=== PATIENT | female | born 1945 | race Hispanic/Latino ===

== ENCOUNTER → 2021-05-04 | Outpatient (CLI) | payer MEDICARE | END | disposition home or self-care (01) | LOC: OIH 09:26 | PROVIDERS: ATTEND Family Medicine | DX: S43.034A Inferior dislocation of right humerus, initial encounter (principal); X58.XXXA Exposure to other specified factors, initial encounter; Y93.89 Activity, other specified; Y92.89 Other specified places as the place of occurrence of the external cause; Y99.8 Other external cause status | CPT/HCPCS: 73030 ==

== ENCOUNTER 2021-08-02 08:49 | Inpatient (IN) | payer MEDICARE ==
[~2021-08-02] VITALS: Ht 160 cm; Wt 87.9 kg
[2021-08-02 09:59] LABS: BASOPHILS % (AUTO) 1.1 % (0.0-5.0); HEMATOCRIT 41.6 % (36-48); LYMPHOCYTES % (AUTO) 26.1 % (21.0-51.0); MEAN CORPUSCULAR HEMOGLOBIN 29.3 pg (27.0-33.0); MEAN CORPUSCULAR HGB CONC 32.2 g/dL (32.0-36.0); MONOCYTES % (AUTO) 6.7 % (3.0-13.0); NEUTROPHILS % (AUTO) 61.7 % (40.0-77.0); PLATELET COUNT (AUTO) 245 K/uL (130-400); RED BLOOD CELL COUNT(AUTO) 4.57 MIL/uL (4.00-5.50); RED CELL DISTRIBUTION WIDTH 13.4 % (11.0-15.5); WHITE BLOOD COUNT (AUTO) 7.2 K/uL (4.8-10.8)
[2021-08-02 10:08] LABS: ABG BASE EXCESS -0.7 mmol/L (-2.0-3.0); ABG HCO3 22.8 mmol/L (21.0-28.0); ABG OXYGEN SATURATION 96.6 % (95.0-99.0); ABG PCO2 34 mmHg (32-45)
[2021-08-02 10:09] LABS: HEMOGLOBIN A1C 5.8 % (4.0-6.0)
[2021-08-02 10:16] LABS: INR 1.19 (0.85-1.15); PROTHROMBIN TIME 12.8 SEC (9.6-11.6)
[2021-08-02 10:17] LABS: PARTIAL THROMBOPLASTIN TIME 29.1 SEC (26.3-35.5)
[2021-08-02 10:29] LABS: ALBUMIN 3.7 g/dL (3.5-5.0); BILIRUBIN,TOTAL 0.6 mg/dL (0.2-1.0); CREATININE 1.1 mg/dL (0.5-1.5); TOTAL PROTEIN, SERUM 7.7 g/dL (6.0-8.3)
[2021-08-02 10:56] VITALS: BP 121/74
[2021-08-02] MEDS ORDERED: ATEN25TA PO (14:50)
[2021-08-02] MEDS ORDERED: DYAZIDE GT (14:50)
[2021-08-02] MEDS ORDERED: APIX5TAB PO (14:50)
[2021-08-07] VITALS (36 sets, daily range): BP systolic 94–184; BP diastolic 7–101
[2021-08-07] MEDS ORDERED: NOREPINEPHRINE BITARTRATE 8 MG in DEXTROSE 5%-WATER 250 ML IV PRN (07:00)
[2021-08-07] MEDS ORDERED: EPINEPHRINE PF 1MG AMP 10 MG in 0.9% NACL 250ML 240 ML IV PRN (07:00)
[2021-08-07] MEDS ORDERED: AMINOCAPROIC ACID 5,000MG VIAL 15,000 MG in 0.9% NACL 500ML IV.SOLN 420 ML IV PRN (07:00)
[2021-08-07] MEDS ORDERED: LACTATED RINGERS 1000ML 1,000 ML IV ONE (08:47)
[2021-08-07] MEDS ORDERED: PAPAVERINE HCL 30 MG/ML 2ML VIAL ONE (08:56)
[2021-08-07] MEDS ORDERED: CEFAZOLIN SODIUM 1 GM VIAL ONE ×2 (08:56→14:34)
[2021-08-07] MEDS: CEFAZOLIN SODIUM 1 GM VIAL ONE ×2 (09:44→11:00)
[2021-08-07] MEDS ORDERED: DELNIDO FORMULA 1 BAG IV ONE (10:16)
[2021-08-07] MEDS ORDERED: ESMOLOL HCL 10 MG/ML 10 ML VIAL ONE (10:32)
[2021-08-07] MEDS ORDERED: LIDOCAINE PF 100MG/5ML (2%) SYRINGE 5ML ONE (10:32)
[2021-08-07] MEDS ORDERED: SODIUM BICARB 50MEQ 50ML VIAL 150 ML ONE (10:32)
[2021-08-07] MEDS ORDERED: EPINEPHRINE PF 1MG AMP ONE (10:32)
[2021-08-07] MEDS ORDERED: HEPARIN 10,000 UNIT/10ML (1,000 UNIT/ML) VIAL ONE (10:32)
[2021-08-07] MEDS ORDERED: PROTAMINE SULFATE 10 MG/ML 25ML VIAL IV ONE (10:32)
[2021-08-07] MEDS ORDERED: NOREPINEPHRINE BITARTRATE 1 MG/1 ML ML IV ONE (10:33)
[2021-08-07] MEDS ORDERED: AMINOCAPROIC ACID 5,000MG VIAL ONE (10:33)
[2021-08-07] MEDS ORDERED: PROPOFOL 10 MG/ML 20ML VIAL IV ONE (10:33)
[2021-08-07] MEDS ORDERED: FENTANYL CITRATE PF 50 MCG/1 ML 20ML VIAL IJ ONE (10:33)
[2021-08-07] MEDS ORDERED: ROCURONIUM 10MG/1ML SYR 10 MG/ML ML ONE (10:33)
[2021-08-07] MEDS ORDERED: MIDAZOLAM HCL 1 MG/ML 2ML VIAL ONE (10:33)
[2021-08-07] MEDS ORDERED: KETAMINE HCL 100 MG/ML 5ML VIAL IJ ONE (10:36)
[2021-08-07] MEDS ORDERED: CEFAZOLIN SODIUM 1 GM VIAL IVP ONE (11:00)
[2021-08-07 11:43] LABS: ABG BASE EXCESS -1.5 mmol/L (-2.0-3.0); ABG HCO3 23.4 mmol/L (21.0-28.0); ABG OXYGEN SATURATION 99.9 % (95.0-99.0); ABG PCO2 40 mmHg (32-45)
[2021-08-07 13:19] LABS: ABG BASE EXCESS -5.3 mmol/L (-2.0-3.0); ABG HCO3 17.9 mmol/L (21.0-28.0); ABG OXYGEN SATURATION 99.3 % (95.0-99.0); ABG PCO2 27 mmHg (32-45)
[2021-08-07 13:44] LABS: ABG BASE EXCESS 1.1 mmol/L (-2.0-3.0); ABG HCO3 24.1 mmol/L (21.0-28.0); ABG OXYGEN SATURATION 98.7 % (95.0-99.0); ABG PCO2 33 mmHg (32-45)
[2021-08-07] MEDS ORDERED: MIDAZOLAM HCL 1 MG/ML 5ML VIAL ONE (13:50)
[2021-08-07] MEDS ORDERED: AMIODARONE 150MG VIAL ONE (13:52)
[2021-08-07] MEDS ORDERED: NITROGLYCERIN 50MG/D5W 250ML 1 BOT ONE (14:13)
[2021-08-07] MEDS ORDERED: HEPARIN 10,000 UNIT/10ML (1,000 UNIT/ML) VIAL IV ONE (14:34)
[2021-08-07] MEDS ORDERED: PHENYLEPHRINE HCL 10 MG/ML 1ML VIAL IV ONE (14:34)
[2021-08-07] MEDS ORDERED: MAGNESIUM SULFATE 1 GM/2 ML VIAL IM ONE (14:34)
[2021-08-07] MEDS ORDERED: ALBUMIN (HUMAN) 25% 50 ML IV ONE (14:34)
[2021-08-07] MEDS ORDERED: AMINOCAPROIC ACID 5,000MG VIAL IV ONE (14:34)
[2021-08-07] MEDS ORDERED: LIDOCAINE PF 100MG/5ML (2%) SYRINGE 5ML IVP ONE (14:34)
[2021-08-07] MEDS ORDERED: MANNITOL 25% 50ML VIAL IV ONE (14:34)
[2021-08-07] MEDS ORDERED: CACL 1GM SYG IVP ONE (14:34)
[2021-08-07] MEDS ORDERED: SODIUM BICARB 8.4% 50ML SYRINGE IVP ONE (14:34)
[2021-08-07 14:48] LABS: ABG BASE EXCESS -3.4 mmol/L (-2.0-3.0); ABG HCO3 20.6 mmol/L (21.0-28.0); ABG OXYGEN SATURATION 98.7 % (95.0-99.0); ABG PCO2 33 mmHg (32-45)
[2021-08-07] MEDS: POTASSIUM CHLORIDE 20MEQ/100ML 100 ML IV PRN ×11 (15:20→23:18)
[2021-08-07 15:25] LABS: ABG BASE EXCESS -2.1 mmol/L (-2.0-3.0); ABG HCO3 22.4 mmol/L (21.0-28.0); ABG OXYGEN SATURATION 97.8 % (95.0-99.0); ABG PCO2 37 mmHg (32-45)
[2021-08-07] MEDS ORDERED: INSULIN REGULAR, HUMAN 3ML 100 UNIT in 0.9%NACL 100ML 99 ML IV SCH ×2 (15:30)
[2021-08-07] MEDS ORDERED: GLUCAGON 1MG KIT 1 MG ML IM PRN (15:30)
[2021-08-07] MEDS ORDERED: EPINEPHRINE PF 1MG AMP 10 MG in DEXTROSE 5%-WATER 250 ML IV PRN (15:30)
[2021-08-07] MEDS ORDERED: TRAMADOL HCL 50 MG TABLET PO PRN (15:30)
[2021-08-07] MEDS ORDERED: MORPHINE 4 MG SYG IV PRN (15:30)
[2021-08-07] MEDS ORDERED: AMINOCAPROIC ACID 5,000MG VIAL 15,000 MG in 0.9% NACL 250ML 250 ML IV SCH (15:30)
[2021-08-07] MEDS ORDERED: ACETAMINOPHEN 650 MG SUPPOSITORY RC PRN (15:30)
[2021-08-07] MEDS ORDERED: ALBUMIN (HUMAN) 5% 250 ML IV PRN (15:30)
[2021-08-07] MEDS ORDERED: PROPOFOL 1000 MG/100 ML 100 ML IV PRN (15:30)
[2021-08-07] MEDS ORDERED: POTASSIUM PHOS 15 mMOL+NS250ML 250 ML IV PRN (15:30)
[2021-08-07] MEDS ORDERED: DEXTROSE 50%-WATER 50 ML DISP.SYRIN IV PRN (15:30)
[2021-08-07] MEDS ORDERED: NITROGLYCERIN 50MG/D5W 250ML 250 BOT IV SCH (15:30)
[2021-08-07] MEDS ORDERED: MORPHINE 2 MG SYG IV PRN (15:30)
[2021-08-07] MEDS ORDERED: 0.9% NACL 500ML IV.SOLN 500 ML IV SCH (15:30)
[2021-08-07] MEDS ORDERED: 0.9%NACL 10ML VIAL IVP PRN (15:30)
[2021-08-07] MEDS ORDERED: MAGNESIUM 2GM PREMIX 50ML 50 ML IV PRN (15:30)
[2021-08-07] MEDS ORDERED: NOREPINEPHRIN 4MG/NS 250ML 250 ML IV PRN (15:30)
[2021-08-07] MEDS: 0.9%NACL 1000ML 1,000 ML IV SCH ×2 (15:30→19:57)
[2021-08-07 15:41] LABS: HEMATOCRIT 30.4 % (36-48); MEAN CORPUSCULAR HEMOGLOBIN 29.5 pg (27.0-33.0); MEAN CORPUSCULAR HGB CONC 32.2 g/dL (32.0-36.0); MEAN CORPUSCULAR VOLUME 91.6 fL (79-99); RED BLOOD CELL COUNT(AUTO) 3.32 MIL/uL (4.00-5.50); RED CELL DISTRIBUTION WIDTH 13.5 % (11.0-15.5); WHITE BLOOD COUNT (AUTO) 25.5 K/uL (4.8-10.8)
[2021-08-07 15:53] LABS: CREATININE 1.1 mg/dL (0.5-1.5); MAGNESIUM 2.9 mg/dL (1.80-2.40); PHOSPHORUS 3.7 mg/dL (2.5-4.9)
[2021-08-07 15:54] LABS: INR 1.37 (0.85-1.15); PROTHROMBIN TIME 14.5 SEC (9.6-11.6)
[2021-08-07 15:56] LABS: PARTIAL THROMBOPLASTIN TIME 26.4 SEC (26.3-35.5)
[2021-08-07] MEDS: TRAMADOL HCL 50 MG TABLET PO PRN ×2 (16:00→23:00)
[2021-08-07 16:50] LABS: ABG BASE EXCESS -3.9 mmol/L (-2.0-3.0); ABG HCO3 20.1 mmol/L (21.0-28.0); ABG OXYGEN SATURATION 97.9 % (95.0-99.0); ABG PCO2 33 mmHg (32-45)
[2021-08-07] MEDS: SODIUM BICARB 50MEQ 50ML VIAL IV PRN ×6 (17:00→23:35)
[2021-08-07 18:14] LABS: ABG BASE EXCESS -1.3 mmol/L (-2.0-3.0); ABG HCO3 24.5 mmol/L (21.0-28.0); ABG OXYGEN SATURATION 97.1 % (95.0-99.0); ABG PCO2 45 mmHg (32-45)
[2021-08-07 19:38] LABS: ABG BASE EXCESS -4.4 mmol/L (-2.0-3.0); ABG HCO3 21.6 mmol/L (21.0-28.0); ABG OXYGEN SATURATION 97.7 % (95.0-99.0); ABG PCO2 43 mmHg (32-45)
[2021-08-07] MEDS: ACETAMINOPHEN 325 MG TAB PO PRN (20:07)
[2021-08-07] MEDS: FAMOTIDINE 20MG VIAL IV SCH (20:08)
[2021-08-07] MEDS: ATORVASTATIN 40 MG TABLET PO SCH (20:08)
[2021-08-07] MEDS: CEFAZOLIN SODIUM 1 GM VIAL IV SCH (20:24)
[2021-08-07 20:33] LABS: ABG BASE EXCESS 4.6 mmol/L (-2.0-3.0); ABG HCO3 29.9 mmol/L (21.0-28.0); ABG OXYGEN SATURATION 96.9 % (95.0-99.0); ABG PCO2 48 mmHg (32-45)
[2021-08-07] MEDS: CALCIUM GLUC 1GM 1 GM in 0.9%NACL 50ML 50 ML IV PRN ×2 (20:55→21:39)
[2021-08-07] MEDS ORDERED: PHARMACY COMMUNICATION MISC SCH (21:00)
[2021-08-07 21:37] LABS: ABG BASE EXCESS 1.2 mmol/L (-2.0-3.0); ABG HCO3 26.3 mmol/L (21.0-28.0); ABG OXYGEN SATURATION 97.6 % (95.0-99.0); ABG PCO2 44 mmHg (32-45)
[2021-08-07 22:58] LABS: ABG BASE EXCESS -0.6 mmol/L (-2.0-3.0); ABG HCO3 25.5 mmol/L (21.0-28.0); ABG OXYGEN SATURATION 97.5 % (95.0-99.0); ABG PCO2 48 mmHg (32-45)
[2021-08-07 23:03] LABS: ABG BASE EXCESS -1.1 mmol/L (-2.0-3.0); ABG OXYGEN SATURATION 97.4 % (95.0-99.0); ABG PCO2 48 mmHg (32-45)
[2021-08-07 23:15] LABS: ABG BASE EXCESS -1.6 mmol/L (-2.0-3.0); ABG HCO3 24.2 mmol/L (21.0-28.0); ABG PCO2 45 mmHg (32-45)
[2021-08-08] VITALS (43 sets, daily range): BP systolic 85–174; BP diastolic 34–106
[2021-08-08 00:49] LABS: ABG BASE EXCESS 3.3 mmol/L (-2.0-3.0); ABG HCO3 28.4 mmol/L (21.0-28.0); ABG OXYGEN SATURATION 96.9 % (95.0-99.0); ABG PCO2 45 mmHg (32-45)
[2021-08-08] MEDS: ACETAMINOPHEN 325 MG TAB PO PRN ×2 (00:59→19:46)
[2021-08-08 03:35] LABS: HEMATOCRIT 30.8 % (36-48); MEAN CORPUSCULAR HEMOGLOBIN 29.6 pg (27.0-33.0); MEAN CORPUSCULAR HGB CONC 32.1 g/dL (32.0-36.0); MEAN CORPUSCULAR VOLUME 91.9 fL (79-99); RED BLOOD CELL COUNT(AUTO) 3.35 MIL/uL (4.00-5.50); RED CELL DISTRIBUTION WIDTH 13.9 % (11.0-15.5); WHITE BLOOD COUNT (AUTO) 17.3 K/uL (4.8-10.8)
[2021-08-08 03:44] LABS: INR 1.27 (0.85-1.15); PROTHROMBIN TIME 13.5 SEC (9.6-11.6)
[2021-08-08 03:45] LABS: PARTIAL THROMBOPLASTIN TIME 28.1 SEC (26.3-35.5)
[2021-08-08 03:46] LABS: CREATININE 1.3 mg/dL (0.5-1.5); MAGNESIUM 2.1 mg/dL (1.80-2.40); PHOSPHORUS 1.6 mg/dL (2.5-4.9)
[2021-08-08] MEDS: CEFAZOLIN SODIUM 1 GM VIAL IV SCH ×2 (03:53→13:51)
[2021-08-08] MEDS: POTASSIUM CHLORIDE 20MEQ/100ML 100 ML IV PRN (03:58)
[2021-08-08] MEDS ORDERED: PHARMACY COMMUNICATION MISC SCH (04:00)
[2021-08-08 04:15] LABS: ABG BASE EXCESS 7.5 mmol/L (-2.0-3.0); ABG HCO3 33.6 mmol/L (21.0-28.0); ABG OXYGEN SATURATION 95.7 % (95.0-99.0); ABG PCO2 55 mmHg (32-45)
[2021-08-08 06:19] LABS: ABG BASE EXCESS 8.5 mmol/L (-2.0-3.0); ABG HCO3 34.2 mmol/L (21.0-28.0); ABG OXYGEN SATURATION 96.1 % (95.0-99.0); ABG PCO2 53 mmHg (32-45)
[2021-08-08] MEDS: FAMOTIDINE 20MG VIAL IV SCH (09:00)
[2021-08-08] MEDS ORDERED: FAMOTIDINE 20MG TAB ONE (09:09)
[2021-08-08] MEDS: CLOPIDOGREL 75MG TAB PO SCH (09:15)
[2021-08-08] MEDS: ONDANSETRON 4MG INJ IV PRN (13:53)
[2021-08-08 14:24] LABS: ABG BASE EXCESS 6.8 mmol/L (-2.0-3.0); ABG HCO3 31.5 mmol/L (21.0-28.0); ABG OXYGEN SATURATION 98.1 % (95.0-99.0); ABG PCO2 46 mmHg (32-45)
[2021-08-08 14:39] LABS: CREATININE 1.1 mg/dL (0.5-1.5); MAGNESIUM 1.8 mg/dL (1.80-2.40); POTASSIUM 5.9 mmol/L (3.5-5.1)
[2021-08-08] MEDS: ATORVASTATIN 40 MG TABLET PO SCH (19:46)
[2021-08-08] MEDS: TRAMADOL HCL 50 MG TABLET PO PRN (20:59)
[2021-08-09] VITALS (22 sets, daily range): BP systolic 91–172; BP diastolic 37–113
[2021-08-09] MEDS: ACETAMINOPHEN 325 MG TAB PO PRN (00:07)
[2021-08-09 04:24] LABS: HEMATOCRIT 29.4 % (36-48); MEAN CORPUSCULAR HEMOGLOBIN 29.6 pg (27.0-33.0); MEAN CORPUSCULAR HGB CONC 30.6 g/dL (32.0-36.0); MEAN CORPUSCULAR VOLUME 96.7 fL (79-99); NUCLEATED RED BLOOD CELLS 0.1 % (0.0-0.19); PLATELET COUNT (AUTO) 126 K/uL (130-400); RED BLOOD CELL COUNT(AUTO) 3.04 MIL/uL (4.00-5.50); RED CELL DISTRIBUTION WIDTH 14.5 % (11.0-15.5); WHITE BLOOD COUNT (AUTO) 20.1 K/uL (4.8-10.8)
[2021-08-09 05:19] LABS: CREATININE 1.7 mg/dL (0.5-1.5)
[2021-08-09 05:23] LABS: POTASSIUM 6.7 mmol/L (3.5-5.1)
[2021-08-09] MEDS ORDERED: DEXTROSE 50%-WATER 50 ML DISP.SYRIN IV ONE (06:00)
[2021-08-09] MEDS ORDERED: INSULIN HUMULIN R 100 UNIT/ML 3ML IV ONE (06:00)
[2021-08-09] MEDS: 0.9%NACL 1000ML 1,000 ML IV SCH (06:00)
[2021-08-09] MEDS ORDERED: KAYEXALATE 15GM/60ML PO ONE (06:00)
[2021-08-09] MEDS: ONDANSETRON 4MG INJ IV PRN (06:35)
[2021-08-09] MEDS ORDERED: FUROSEMIDE 20 MG TABLET PO SCH (09:00)
[2021-08-09] MEDS ORDERED: FUROSEMIDE 20MG VIAL IV SCH (09:00)
[2021-08-09] MEDS ORDERED: METOPROLOL TARTRATE 25 MG TAB ONE (10:36)
[2021-08-09] MEDS: CLOPIDOGREL 75MG TAB PO SCH (10:43)
[2021-08-09] MEDS: FAMOTIDINE 20MG VIAL IV SCH (10:43)
[2021-08-09] MEDS ORDERED: METOPROLOL TARTRATE 25 MG TAB PO SCH (11:00)
[2021-08-09 13:58] LABS: ABG BASE EXCESS 1.7 mmol/L (-2.0-3.0); ABG HCO3 25.9 mmol/L (21.0-28.0); ABG OXYGEN SATURATION 90.6 % (95.0-99.0); ABG PCO2 39 mmHg (32-45)
[2021-08-09 16:27] LABS: MEAN CORPUSCULAR HEMOGLOBIN 29.5 pg (27.0-33.0); MEAN CORPUSCULAR VOLUME 95.1 fL (79-99); NUCLEATED RED BLOOD CELLS 0.2 % (0.0-0.19); PLATELET COUNT (AUTO) 124 K/uL (130-400); RED BLOOD CELL COUNT(AUTO) 3.05 MIL/uL (4.00-5.50); RED CELL DISTRIBUTION WIDTH 14.5 % (11.0-15.5); WHITE BLOOD COUNT (AUTO) 18.9 K/uL (4.8-10.8)
[2021-08-09 16:45] LABS: CREATININE 2.2 mg/dL (0.5-1.5); POTASSIUM 4.6 mmol/L (3.5-5.1)
[2021-08-09 16:50] LABS: BAND NEUTROPHILS % (MANUAL) 3 % (0-2); LYMPHOCYTES % (MANUAL) 3 % (22-44); MAN.DIFF COMMENT-IMPRESSION MANUAL DIFFERENTIAL; MONOCYTES % (MANUAL) 2 % (2-9); REACTIVE LYMPHOCYTES 4 % (0-0); SEGMENTED NEUTROPHILS % 88 % (40-70)
[2021-08-09 17:15] LABS: ABG BASE EXCESS 2.4 mmol/L (-2.0-3.0); ABG HCO3 27.1 mmol/L (21.0-28.0); ABG OXYGEN SATURATION 98.3 % (95.0-99.0); ABG PCO2 43 mmHg (32-45)
[2021-08-09 17:17] LABS: BILIRUBIN,URINE Negative (NEGATIVE); COLOR,URINE Yellow (YELLOW); GLUCOSE, URINE (UA) Negative (NEGATIVE); KETONES,URINE Trace mg/dL (NEGATIVE); LEUKOCYTE ESTERASE ,URINE Moderate (NEGATIVE); NITRATE,URINE Negative (NEGATIVE); OCCULT BLOOD,URINE Large (NEGATIVE); PROTEIN,URINE POS 1+ mg/dL (NEGATIVE)
[2021-08-09 17:23] LABS: APPEARANCE,URINE CLOUDY (CLEAR)
[2021-08-09 17:29] LABS: BACTERIA,URINE Few /HPF (None Seen)
[2021-08-09 17:30] LABS: MUCUS,URINE Rare LPF (None Seen); SQUAMOUS EPITHELIAL CELL,UR Few /HPF (0-2)
[2021-08-09] MEDS ORDERED: DEXMEDETOMIDINE 400MCG/NS100ML IV ONE (18:45)
[2021-08-09] MEDS ORDERED: DEXMEDETOMIDINE 400MCG/NS100ML IV SCH (19:00)
[2021-08-09] MEDS: ATORVASTATIN 40 MG TABLET PO SCH (19:50)
[2021-08-10] VITALS (16 sets, daily range): BP systolic 98–136; BP diastolic 42–77
[2021-08-10] MEDS: 0.9%NACL 1000ML 1,000 ML IV SCH ×2 (02:00→07:22)
[2021-08-10 06:19] LABS: HEMATOCRIT 27.4 % (36-48); MEAN CORPUSCULAR HEMOGLOBIN 29.1 pg (27.0-33.0); MEAN CORPUSCULAR HGB CONC 30.7 g/dL (32.0-36.0); MEAN CORPUSCULAR VOLUME 94.8 fL (79-99); PLATELET COUNT (AUTO) 107 K/uL (130-400); RED BLOOD CELL COUNT(AUTO) 2.89 MIL/uL (4.00-5.50); RED CELL DISTRIBUTION WIDTH 14.1 % (11.0-15.5); WHITE BLOOD COUNT (AUTO) 13.7 K/uL (4.8-10.8)
[2021-08-10 06:28] LABS: CREATININE 1.8 mg/dL (0.5-1.5)
[2021-08-10 07:20] LABS: EOSINOPHILS % (MANUAL) 1 % (1-6); LYMPHOCYTES % (MANUAL) 14 % (22-44); MAN.DIFF COMMENT-IMPRESSION MANUAL DIFFERENTIAL; MONOCYTES % (MANUAL) 5 % (2-9); PLATELET MORPHOLOGY COMMENT SLIGHTLY DECREASED; SEGMENTED NEUTROPHILS % 80 % (40-70)
[2021-08-10] MEDS: CLOPIDOGREL 75MG TAB PO SCH (09:23)
[2021-08-10] MEDS: METOPROLOL TARTRATE 25 MG TAB PO SCH ×2 (09:23→20:10)
[2021-08-10] MEDS: ENOXAPARIN SODIUM 30 MG/0.3 ML SQ SCH (09:24)
[2021-08-10] MEDS: FAMOTIDINE 20MG VIAL IV SCH ×2 (09:24→09:26)
[2021-08-10] MEDS: FAMOTIDINE 20MG TAB PO SCH (09:43)
[2021-08-10] MEDS: ACETAMINOPHEN 325 MG TAB PO PRN (20:11)
[2021-08-10] MEDS: ATORVASTATIN 40 MG TABLET PO SCH (20:12)
[2021-08-11 03:32] VITALS: BP 114/52
[2021-08-11] MEDS: 0.9%NACL 1000ML 1,000 ML IV SCH (04:02)
[2021-08-11 04:22] LABS: HEMATOCRIT 30.2 % (36-48); MEAN CORPUSCULAR HEMOGLOBIN 29.6 pg (27.0-33.0); MEAN CORPUSCULAR HGB CONC 30.5 g/dL (32.0-36.0); MEAN CORPUSCULAR VOLUME 97.1 fL (79-99); NUCLEATED RED BLOOD CELLS 0.3 % (0.0-0.19); PLATELET COUNT (AUTO) 151 K/uL (130-400); RED BLOOD CELL COUNT(AUTO) 3.11 MIL/uL (4.00-5.50); RED CELL DISTRIBUTION WIDTH 14.2 % (11.0-15.5); WHITE BLOOD COUNT (AUTO) 12.8 K/uL (4.8-10.8)
[2021-08-11 04:45] LABS: CREATININE 1.8 mg/dL (0.5-1.5); PHOSPHORUS 4.1 mg/dL (2.5-4.9); POTASSIUM 4.1 mmol/L (3.5-5.1)
[2021-08-11 05:13] LABS: BASOPHILS % (MANUAL) 2 % (0-2); LYMPHOCYTES % (MANUAL) 23 % (22-44); MONOCYTES % (MANUAL) 3 % (2-9); SEGMENTED NEUTROPHILS % 72 % (40-70)
[2021-08-11 05:14] LABS: MAN.DIFF COMMENT-IMPRESSION MANUAL DIFFERENTIAL; PLATELET MORPHOLOGY COMMENT SLIGHTLY DECREASED
[2021-08-11 08:30] VITALS: BP 119/82
[2021-08-11] MEDS: CLOPIDOGREL 75MG TAB PO SCH (09:25)
[2021-08-11] MEDS: METOPROLOL TARTRATE 25 MG TAB PO SCH ×2 (09:25→19:55)
[2021-08-11] MEDS: FAMOTIDINE 20MG TAB PO SCH (09:25)
[2021-08-11] MEDS: ENOXAPARIN SODIUM 30 MG/0.3 ML SQ SCH (09:28)
[2021-08-11 12:30] VITALS: BP 141/77
[2021-08-11 16:30] VITALS: BP 163/71
[2021-08-11 19:52] VITALS: BP 160/80
[2021-08-11] MEDS: ATORVASTATIN 40 MG TABLET PO SCH (19:55)
[2021-08-11 23:31] VITALS: BP 134/64
[2021-08-12 03:55] LABS: BASOPHILS % (AUTO) 0.7 % (0.0-5.0); EOSINOPHILS % (AUTO) 2.2 % (0.0-8.0); HEMATOCRIT 29.3 % (36-48); LYMPHOCYTES % (AUTO) 16.7 % (21.0-51.0); MEAN CORPUSCULAR HEMOGLOBIN 28.9 pg (27.0-33.0); MEAN CORPUSCULAR HGB CONC 31.1 g/dL (32.0-36.0); MONOCYTES % (AUTO) 11.5 % (3.0-13.0); NEUTROPHILS % (AUTO) 67.1 % (40.0-77.0); NUCLEATED RED BLOOD CELLS 0.4 % (0.0-0.19); PLATELET COUNT (AUTO) 193 K/uL (130-400); RED BLOOD CELL COUNT(AUTO) 3.15 MIL/uL (4.00-5.50); RED CELL DISTRIBUTION WIDTH 13.8 % (11.0-15.5); WHITE BLOOD COUNT (AUTO) 12.1 K/uL (4.8-10.8)
[2021-08-12 04:00] VITALS: BP 129/63
[2021-08-12 04:12] LABS: CREATININE 1.4 mg/dL (0.5-1.5); POTASSIUM 3.9 mmol/L (3.5-5.1)
[2021-08-12 08:41] VITALS: BP 137/86
[2021-08-12] MEDS: FAMOTIDINE 20MG TAB PO SCH (10:21)
[2021-08-12] MEDS: METOPROLOL TARTRATE 25 MG TAB PO SCH ×2 (10:21→19:25)
[2021-08-12] MEDS: CLOPIDOGREL 75MG TAB PO SCH (10:21)
[2021-08-12] MEDS: ENOXAPARIN SODIUM 30 MG/0.3 ML SQ SCH (10:22)
[2021-08-12 12:30] VITALS: BP 132/65
[2021-08-12] MEDS: 0.9%NACL 1000ML 1,000 ML IV SCH (13:43)
[2021-08-12 16:30] VITALS: BP 158/94
[2021-08-12 19:00] VITALS: BP 144/74
[2021-08-12] MEDS: ATORVASTATIN 40 MG TABLET PO SCH (19:25)
[2021-08-12] MEDS: ACETAMINOPHEN 325 MG TAB PO PRN (19:26)
[2021-08-13] VITALS: BP 167/84
[2021-08-13] MEDS: ONDANSETRON 4MG INJ IV PRN (01:37)
[2021-08-13 03:35] VITALS: BP 159/68
[2021-08-13] MEDS: 0.9%NACL 1000ML 1,000 ML IV SCH (07:28)
[2021-08-13 08:15] VITALS: BP 156/74
[2021-08-13] MEDS: ENOXAPARIN SODIUM 30 MG/0.3 ML SQ SCH (08:24)
[2021-08-13] MEDS: METOPROLOL TARTRATE 25 MG TAB PO SCH (08:25)
[2021-08-13] MEDS: CLOPIDOGREL 75MG TAB PO SCH (08:25)
[2021-08-13] MEDS: FAMOTIDINE 20MG TAB PO SCH (08:25)
[2021-08-13] MEDS ORDERED: FURO20TA6 PO (08:54)
[2021-08-13] MEDS ORDERED: GUAI600T50 PO (08:54)
[2021-08-13] MEDS ORDERED: METO25TA6 PO (08:56)
[2021-08-13] MEDS ORDERED: CLOP75TA14 PO (08:57)
[2021-08-13] MEDS ORDERED: GUAIFENESIN 600 MG TABLET.ER PO SCH (09:00)
[2021-08-13] MEDS ORDERED: FUROSEMIDE 20 MG TABLET PO SCH (09:00)
== END 2021-08-13 09:23 | disposition home or self-care (01) | DRG 219 ==
LOC: EDSTATUS 10:00 → DAHIP 08-07 08:26 → 2CV 08-07 14:12 → 2CH 08-08 10:17 → 2DH 08-10 13:59
PROVIDERS: ADMIT Thoracic Surgery (Cardiothoracic Vascular Surgery); ATTEND Thoracic Surgery (Cardiothoracic Vascular Surgery)
PROC: 02L70CK Occlusion of Left Atrial Appendage with Extraluminal Device, Open Approach (ICD-10-PCS; 2021-08-07)
PROC: 5A1221Z Performance of Cardiac Output, Continuous (ICD-10-PCS; 2021-08-07)
PROC: B24BZZ4 Ultrasonography of Heart with Aorta, Transesophageal (ICD-10-PCS; 2021-08-07)
PROC: 02RF08Z Replacement of Aortic Valve with Zooplastic Tissue, Open Approach (ICD-10-PCS; principal; 2021-08-07 10:31)
PROC: 02100Z9 Bypass Coronary Artery, One Artery from Left Internal Mammary, Open Approach (ICD-10-PCS; 2021-08-07 10:31)
PROC: 021009W Bypass Coronary Artery, One Artery from Aorta with Autologous Venous Tissue, Open Approach (ICD-10-PCS; 2021-08-07 10:31)
PROC: 06BQ4ZZ Excision of Left Saphenous Vein, Percutaneous Endoscopic Approach (ICD-10-PCS; 2021-08-07 10:31)
DX: I35.0 Nonrheumatic aortic (valve) stenosis (principal); J95.1 Acute pulmonary insufficiency following thoracic surgery; N17.9 Acute kidney failure, unspecified; I44.2 Atrioventricular block, complete; I25.10 Atherosclerotic heart disease of native coronary artery without angina pectoris; E87.5 Hyperkalemia; E78.00 Pure hypercholesterolemia, unspecified; Z20.822 Contact with and (suspected) exposure to COVID-19; I10 Essential (primary) hypertension; E78.5 Hyperlipidemia, unspecified; D64.9 Anemia, unspecified; R73.9 Hyperglycemia, unspecified; I48.0 Paroxysmal atrial fibrillation; Z88.6 Allergy status to analgesic agent; Z88.8 Allergy status to other drugs, medicaments and biological substances; Z91.018 Allergy to other foods; Z90.49 Acquired absence of other specified parts of digestive tract; Z79.01 Long term (current) use of anticoagulants; Z79.02 Long term (current) use of antithrombotics/antiplatelets; Z79.899 Other long term (current) drug therapy; Y83.8 Other surgical procedures as the cause of abnormal reaction of the patient, or of later complication, without mention of misadventure at the time of the procedure; Y92.89 Other specified places as the place of occurrence of the external cause
CPT/HCPCS: 36415; 36600; 71045; 71046; 76770; 80048; 80053; 80061; 81001; 82330; 82435; 82803; 82947; 82948; 83036; 83605; 83735; 84100; 84132; 84295; 85018; 85025; 85027; 85347; 85610; 85730; 86850; 86900; 86901; 86923; 87088; 87635; 88305; 88311; 93005; 93313; 93318; 93880; 94002; 94150; 97039; A7048; G0378; J0171; J0282; J0610; J0690; J1644; J1650; J1815; J1940; J2001; J2150; J2250; J2370; J2405; J2440; J2704; J2720; J3010; J3475; J3480; J3490; J7030; J7040; J7070; J7120; P9045; P9047

== ENCOUNTER → 2023-12-16 | Outpatient (CLI) | payer MEDICARE ==
[~2023-12-16] MED LIST: CLOP-31 PO; FURO20TA6 PO; GUAI600T50 PO; METO25TA6 PO
== END | disposition home or self-care (01) ==
LOC: SHCH 08:25
PROVIDERS: ATTEND Internal Medicine Cardiovascular Disease
DX: I08.8 Other rheumatic multiple valve diseases (principal); Z95.2 Presence of prosthetic heart valve; I10 Essential (primary) hypertension; Z95.3 Presence of xenogenic heart valve
CPT/HCPCS: 93306

== ENCOUNTER → 2025-05-20 | Outpatient (CLI) | payer MEDICARE ==
--- NOTE | 2025-05-20 23:12 | HMCIMG ---
EXAMINATION: ULTRASOUND OF THE RETROPERITONEUM. CLINICAL HISTORY: Acute kidney failure. COMPARISON: Ultrasound of the retroperitoneum dated 08/10/2021. TECHNIQUE: Real-time grayscale ultrasound images of the kidneys. FINDINGS: The kidneys are normal in caliber, the right kidney measures 8.5 x 3.9 x 3.1 cm and the left kidney measures 8.5 x 4.9 x 3.7 cm in its craniocaudal, AP, and transverse dimensions respectively. There is normal renal cortical thickness, and cortical echogenicity. There is no renal calculus or hydronephrosis. The urinary bladder is normal in caliber and wall thickness (0.4 cm). There are no calculi in the urinary bladder. Pre-void volume is 134 cc and post-void volume is nil. IMPRESSION: No significant abnormality. /[place]
== END | disposition home or self-care (01) ==
LOC: RAH 10:47
PROVIDERS: ATTEND Family Medicine
DX: N17.9 Acute kidney failure, unspecified (principal)
CPT/HCPCS: 76770